=== PATIENT | male | born 1990 | race Two or more races ===

== ENCOUNTER 2018-02-25 03:45 | Emergency (ER) | payer OTHER ==
[~2018-02-25] VITALS: Ht 185.4 cm; Wt 97.5 kg
[2018-02-25 05:14] VITALS: BP 138/98
== END 2018-02-25 05:10 | disposition home or self-care (01) ==
LOC: ER 03:52
DX: K64.8 Other hemorrhoids (principal)
CPT/HCPCS: 99282; A4606; Z7610